=== PATIENT | male | born 1960 | race Caucasian/White ===

== ENCOUNTER 2017-12-12 18:58 | Emergency (ER) | payer OTHER ==
[2017-12-12 19:06] VITALS: BP 161/79; PULSE 88; TEMP 98.2; BMI 32.8
--- NOTE | 2017-12-12 21:32 | PDOC ---
History of Present Illness - General Chief Complaint: Pain Stated Complaint: STOMACH CRAMPS Time Seen by Provider: 12/12/17 19:17 - History of Present Illness Initial Comments: 57-year-old healthy active male past medical history of hypertension and dyslipidemia presents for evaluation of abdominal pain. States the pain has been going on for 2 years in 1980 he had a right-sided inguinal hernia repair with mesh. He feels a symptoms might be related to that. 12/12/17 21:28 Past History - Past Medical History Allergies/Adverse Reactions: Allergies Allergy/AdvReac Type Severity Reaction Status Date / Time No Known Allergies Allergy Verified 12/12/17 19:06 Home Medications: Ambulatory Orders Hydrochlorothiazide 12.5 mg PO ASDIR 12/12/17 COPD: No HTN: Yes - Surgical History Abdominal Surgery: Yes - Suicide/Smoking/Psychosocial Hx Smoking History: Never smoked Hx Alcohol Use: No Drug/Substance Use Hx: No Review of Systems - Review of Systems Comments:: GENERAL/CONSTITUTIONAL: No fever or chills. No weakness. No weight change. HEAD, EYES, EARS, NOSE AND THROAT: No change in vision. No ear pain or discharge. No sore throat. CARDIOVASCULAR: No chest pain or shortness of breath. RESPIRATORY: No cough, wheezing, or hemoptysis. GASTROINTESTINAL: No nausea, vomiting, diarrhea or constipation. No rectal bleeding. Intermittent abdominal pain GENITOURINARY: No dysuria, frequency, or change in urination. MUSCULOSKELETAL: No joint or muscle swelling or pain. No neck or back pain. SKIN AND BREASTS: No rash or easy bruising. NEUROLOGIC: No headache, vertigo, loss of consciousness, or loss of sensation. PSYCHIATRIC: No depression or anxiety. ENDOCRINE: No increased thirst. No abnormal weight change. HEMATOLOGIC/LYMPHATIC: No anemia, easy bleeding, or history of blood clots. ALLERGIC/IMMUNOLOGIC: No hives or skin allergy. No latex allergy. 12/12/17 21:29 *Physical Exam - Vital Signs Last Vital Signs Temp Pulse Resp BP Pulse Ox 98.2 F 88 18 161/79 96 12/12/17 19:04 12/12/17 19:04 12/12/17 19:04 12/12/17 19:04 12/12/17 19:04 - Physical Exam Comments: GENERAL: The patient is awake, alert, and fully oriented, in no acute distress. HEAD: Normal with no signs of trauma. EYES: Pupils equal, round and reactive to light, extraocular movements intact, sclera anicteric, conjunctiva clear. ENT: Ears normal, nares patent, oropharynx clear without exudates. Moist mucous membranes. NECK: Normal range of motion, supple without lymphadenopathy, JVD, or masses. LUNGS: Breath sounds equal, clear to auscultation bilaterally. No wheezes, and no crackles. HEART: Regular rate and rhythm, normal S1 and S2 without murmur, rub or gallop. ABDOMEN: Soft, mild periumbilical tenderness no other areas of tenderness, normoactive bowel sounds. No guarding, no rebound. No masses. EXTREMITIES: Normal range of motion, no edema. No clubbing or cyanosis. No cords, erythema, or tenderness. NEUROLOGICAL: Cranial nerves II through XII grossly intact. Normal speech, normal gait. PSYCH: Normal mood, normal affect. SKIN: Warm, Dry, normal turgor, no rashes or lesions noted. 12/12/17 21:30 ED Treatment Course - RADIOLOGY Radiology Studies Ordered: Category Date Time Status ABDOMEN & PELVIS CT W/O CONTR [CT] Stat CT Scan 12/12/17 19:17 Taken Medical Decision Making - Medical Decision Making Is a very fit 57-year-old man with periumbilical pain after meals with a history of a right-sided inguinal hernia repair with mesh CAT scan was done to evaluate the mesh. He'll most likely be able to follow-up as an outpatient with general surgery. Or gastroenterology. 12/12/17 21:30 12/12/17 21:42 Head scan results of been reviewed. I will refer him to general surgery. *DC/Admit/Observation/Transfer Diagnosis at time of Disposition: Hernia - Discharge Dispostion Disposition: HOME Condition at time of disposition: Stable Decision to Admit order: No - Referrals Referrals: Garfield Charlton MD [Staff Physician] - - Patient Instructions Printed Discharge Instructions: Abdominal Hernia Additional Instructions: Return to the emergency room if your symptoms increase or go unresolved prior to follow-up with Gen. surgery. - Post Discharge Activity
== END 2017-12-12 21:50 | disposition home or self-care (01) ==
LOC: JERFT 18:58
DX: K40.90 Unilateral inguinal hernia, without obstruction or gangrene, not specified as recurrent (principal); E78.5 Hyperlipidemia, unspecified; I10 Essential (primary) hypertension
CPT/HCPCS: 74176-TC; 99281-25

== ENCOUNTER 2018-12-26 18:52 | Emergency (ER) | payer OTHER | END 2018-12-26 19:35 | disposition home or self-care (01) | LOC: JERFT 18:52 ==

== ENCOUNTER 2021-12-19 19:17 | Emergency (ER) | payer OTHER ==
[2021-12-19] MEDS ORDERED: ALBUTEROL SO4 2.5/IPRATROPIUM 0.5 INH SOL 3 ML VIAL.NEB. NEB SCH (19:30)
[2021-12-19 19:40] VITALS: BP 154/87; PULSE 89; TEMP 97.6; BMI 33.1
[2021-12-19 20:12] LABS: BASO % 0.6 % (0-2.0); HEMATOCRIT 39.9 % (35.4-49); HEMOGLOBIN 13.2 GM/dL (11.7-16.9); LYMPH % 26.9 % (8-40); MCH 29.7 pg (25.7-33.7); MCHC 33.1 g/dl (32.0-35.9); MEAN CELL VOLUME 89.8 fl (80-96); MEAN PLT VOLUME 7.2 fl (7.5-11.1); MONO % 9.1 % (3.8-10.2); NEUT % 55.4 % (42.8-82.8); PLATELET COUNT 288 10^3/uL (134-434); RBC 4.44 M/mm3 (4.00-5.60); WHITE BLOOD COUNT 10.7 K/mm3 (4.0-10.0)
[2021-12-19 20:32] LABS: CALCIUM 8.9 mg/dL (8.5-10.1)
[2021-12-19 20:33] LABS: ALBUMIN 3.5 g/dl (3.4-5.0); BLOOD UREA NITROGEN 20.9 mg/dL (7-18); MAGNESIUM 2.1 mg/dL (1.8-2.4)
[2021-12-19 20:36] LABS: CREATININE 1.2 mg/dL (0.55-1.3)
[2021-12-19 20:37] LABS: BILIRUBIN,TOTAL 0.3 mg/dL (0.2-1); TOT PROT 6.8 g/dl (6.4-8.2)
[2021-12-19 20:41] LABS: N-TERMINAL BNP 22.3 pg/ml (5-125)
== END 2021-12-19 22:48 | disposition home or self-care (01) ==
LOC: JERFT 19:17
PROC: 3E0F7GC Introduction of Other Therapeutic Substance into Respiratory Tract, Via Natural or Artificial Opening (ICD-10-PCS; principal; 2021-12-19)
DX: J98.6 Disorders of diaphragm (principal)
CPT/HCPCS: 0241U-QW; 36415; 71046-TC-FY; 71275-TC; 80053; 83735; 83880; 84484; 85025; 85379; 87633; 93005; 93010; 99285-25